=== PATIENT | female | born 1995 | race Caucasian/White ===

== ENCOUNTER 2021-01-17 08:00 | Outpatient (CLI) | payer OTHER ==
[2021-01-17 20:53] LABS: CHLAMYDIA TRACHOMATIS DNA NEGATIVE (NEGATIVE); NEISSERIA GONORRHOEAE DNA NEGATIVE (NEGATIVE); TRICHOMONAS VAGINALIS DNA NEGATIVE (NEGATIVE)
== END 2021-01-17 23:59 | disposition home or self-care (01) ==
LOC: LAB.R 08:00
PROVIDERS: ATTEND Obstetrics & Gynecology
DX: Z11.3 Encounter for screening for infections with a predominantly sexual mode of transmission (principal)
CPT/HCPCS: 87491; 87591; 87661

== ENCOUNTER 2021-01-22 10:47 | Day surgery (SDC) | payer OTHER ==
[2021-01-22] MEDS ORDERED: ceFAZolin 2 GM/50 ML 2 GM/50 ML BAG IV ONE (11:30)
[2021-01-22] MEDS ORDERED: ACETAMINOPHEN 1,000 MG/100 ML 100 ML IV ONE (11:30)
[2021-01-22] MEDS ORDERED: GABAPENTIN 400 MG CAPSULE ONE (11:31)
[2021-01-22] MEDS ORDERED: LACTATED RINGERS 1,000 ML IV ONE ×2 (11:40→15:24)
[2021-01-22 11:58] LABS: B. PARAPERTUSSIS- RESP PCR PAN NOT DETECTED; B. PERTUSSIS- RESP PCR PANEL NOT DETECTED; C. PNEUMONIAE- RESP PCR PANEL NOT DETECTED; CORONAVIRUS 229E-RESP PCR NOT DETECTED; CORONAVIRUS HKU1-RESP PCR NOT DETECTED; CORONAVIRUS NL63-RESP PCR NOT DETECTED; CORONAVIRUS OC43-RESP PCR NOT DETECTED; HUMAN METAPNEUMOVIRUS NOT DETECTED; INFLUENZA A- RESP PCR PANEL NOT DETECTED; INFLUENZA B - RESP PCR PANEL NOT DETECTED; M. PNEUMONIAE- RESP PCR PANEL NOT DETECTED; PARAINFLUENZA VIRUS 1 NOT DETECTED; PARAINFLUENZA VIRUS 2 NOT DETECTED; PARAINFLUENZA VIRUS 3 NOT DETECTED; PARAINFLUENZA VIRUS 4 NOT DETECTED; RHINOVIRUS/ENTEROVIRUS NOT DETECTED; RSV- RESP PCR PANEL NOT DETECTED; SARS-CoV-2 -RESP PCR PANEL NOT DETECTED
[2021-01-22] MEDS ORDERED: MORPHINE 2 MG/ML CARPUJECT IVP PRN (11:58)
[2021-01-22] MEDS ORDERED: ONDANSETRON 4 MG/2 ML VIAL IVP PRN ×2 (11:58→15:36)
[2021-01-22] MEDS ORDERED: METOCLOPRAMIDE 10 MG/2 ML VIAL IVP PRN (11:58)
[2021-01-22] MEDS ORDERED: HYDROmorphone 0.5 MG/0.5 ML SYRINGE IVP PRN (11:58)
[2021-01-22] MEDS ORDERED: ATROPINE ABBOJECT 1 MG/10 ML SYRINGE IVP PRN (11:58)
[2021-01-22] MEDS ORDERED: ePHEDrine 50 MG/ML VIAL IVP PRN (11:58)
[2021-01-22] MEDS ORDERED: NALOXONE 0.4 MG/ML VIAL IVP PRN (11:58)
[2021-01-22] MEDS ORDERED: fentaNYL 100 MCG/2 ML VIAL IVP PRN (11:58)
--- NOTE | 2021-01-22 11:58 | ANESTHESIA ---
Pre-Anesthesia VS, & Labs - Diagnosis missed , 9 wk gestation - Procedure Sharp Suction D&C Vital Signs: Temp Pulse Resp BP Pulse Ox 36.6 C 70 18 94/52 L 98 01/22/21 11:00 01/22/21 11:00 01/22/21 11:00 01/22/21 11:00 01/22/21 11:00 Height: 5 ft 3 in Weight (kg): 92 kg Body Mass Index: 35.9 BMI Classification: Obese - NPO >8 hours - Is Patient ?: No - Lab Results Lab results reviewed: Yes Home Medications and Allergies Home Medications: Ambulatory Orders No Known Home Medications 01/21/21 No Known Home Medications 01/21/21 Allergies/Adverse Reactions: Allergies Allergy/AdvReac Type Severity Reaction Status Date / Time No Known Drug Allergies Allergy Verified 01/21/21 15:10 Anes History & Medical History - Anesthetic History Anesthesia Complications: reports: No previous complications Family history of Anesthesia Complications: Denies Family history of Malignant Hyperthermia: Denies - Medical History Cardiovascular: reports: None Pulmonary: reports: None Gastrointestinal: reports: None Urinary: reports: None Musculoskeletal: reports: None Endocrine/Autoimmune: reports: None Skin: reports: None - Surgical History General: reports: Cholecystectomy Eyes Ears Nose Throat (EENT): reports: Tonsil/Adenoidectomy Exam General: Alert, Oriented x3, Cooperative, No acute distress Dental: WNL Mouth Openin Fingerbreadth Neck Mobility: Normal Mallampati classification: I Respiratory: Lungs clear, Normal breath sounds, No respiratory distress, No accessory muscle use Cardiovascular: Regular rate, Normal S1, Normal S2, No murmurs Plan Anesthesia Type: General Consent for Procedure(s) Verified and Reviewed: Yes Code Status: Attempt Resuscitation ASA classification: 1-Healthy patient Is this case an emergency?: No
[2021-01-22] MEDS ORDERED: LACTATED RINGERS 1,000 ML IV SCH (12:00)
[2021-01-22] MEDS ORDERED: BUPIVACAINE 0.25% PF 30 ML VIAL ONE (14:30)
[2021-01-22] MEDS ORDERED: LIDOCAINE 2%-EPI 1:100000 20 ML MDV ONE (14:30)
[2021-01-22] MEDS ORDERED: MIDAZOLAM 2 MG/2 ML VIAL ONE (14:33)
[2021-01-22] MEDS ORDERED: PROPOFOL 200 MG/20 ML VIAL IVP ONE (14:33)
[2021-01-22] MEDS ORDERED: fentaNYL 100 MCG/2 ML VIAL ONE (14:33)
[2021-01-22] MEDS ORDERED: LIDOCAINE-MPF 2% 5 ML VIAL ONE (14:33)
[2021-01-22] MEDS ORDERED: BUPIVACAINE 0.5% PF 30 ML VIAL INFIL ONE ×2 (14:52)
[2021-01-22] MEDS ORDERED: LIDOCAINE MPF 2%-EPI 1:200000 20 ML VIAL SUBQ ONE ×2 (14:52)
[2021-01-22] MEDS ORDERED: BUPIVACAINE 0.5% PF 30 ML VIAL ONE (14:55)
[2021-01-22] MEDS ORDERED: CARBOPROST TROMETHAMINE 250 MCG/ML AMP IM ONE (15:08)
[2021-01-22] MEDS ORDERED: METHYLERGONOVINE 0.2 MG/ML VIAL ONE (15:08)
[2021-01-22] MEDS ORDERED: miSOPROStoL 200 MCG TABLET ONE (15:08)
[2021-01-22] MEDS ORDERED: DEXAMETHASONE 4 MG/ML VIAL ONE (15:13)
[2021-01-22] MEDS ORDERED: ONDANSETRON 4 MG/2 ML VIAL ONE (15:13)
[2021-01-22] MEDS ORDERED: KETOROLAC 30 MG/ML VIAL ONE (15:22)
--- NOTE | 2021-01-22 15:33 | OPERATIVE REPORT ---
Operative Report - General Procedure Date: 01/22/21 Planned Procedure: SUCTION D&C Pre-Op Diagnosis: 9 WEEK MISSED AB Procedure Performed: SAME Post Op Diagnosis: SAME - Procedure Note Primary Surgeon: Yosef Jackson MD Anesthesia Provider: navjot Kate CRNA Anesthesia Technique: General LMA Pathology: POC IV Fluids (mL): 800 Estimated Blood Loss (mL): 300 Complications: none
[2021-01-22 15:54] VITALS: BP 102/44
--- NOTE | 2021-01-22 16:08 | OPERATIVE REPORT ---
DATE OF SERVICE: 01/22/2021 Physician: Yosef Jackson MD PREOPERATIVE DIAGNOSES: A 9-week missed . POSTOPERATIVE DIAGNOSIS: A 9-week missed . PROCEDURE: Suction D and C. SURGEON: Yosef Jackson MD ANESTHESIA: DARION Vega IV FLUIDS: 800 mL ESTIMATED BLOOD LOSS: 300 mL FINDINGS: Upon placing a speculum, the cervix was visualized and she sounded to 11 cm. Following the procedure, it had fallen to 9 cm. There was a moderate amount of products of conception removed. PROCEDURE IN DETAIL: Following adequate general anesthesia via LMA, patient was placed in dorsal lithotomy position in [facility]. Pelvic examination revealed a uterus, which was enlarged and felt to be midline. At this point, she was prepped and draped in the usual fashion. A timeout was performed, at which concerns were addressed. A speculum was placed in the vagina. The cervix was visualized, grasped with a single-tooth tenaculum. The uterosacral ligaments were both injected with 0.25% Marcaine with 1% lidocaine with epinephrine in both uterosacral ligaments, 5 mL in each side. The cervix was dilated up to size 9 dilator. The uterus was sounded to 11 cm and then a 9 mm suction catheter was introduced into the uterine cavity. Suction was applied and it was rotated and then gradually withdrawn. There was a flash of fluid and then there was some tissue seen. This was repeated 3 more times with tissue being removed on every one, but the last pass. At this point, the procedure was terminated. The cervix released from the single-tooth tenaculum. Patient tolerated the procedure well and was taken to recovery in stable condition. Sponge and needle counts were correct. TD: 01/22/2021 15:38 [facility]
--- NOTE | 2021-01-22 21:37 | ANESTHESIA POST OP EVALUATION ---
Anesthesia Post Eval - Post Anesthesia Eval Vitals: Last Vital Signs Temp 36.2 C L 01/22/21 15:45 Pulse 81 01/22/21 15:52 Resp 17 01/22/21 15:52 BP 102/44 L 01/22/21 15:52 Pulse Ox 100 01/22/21 15:52 CV Function Including HR & BP: positive: Stable Pain Control: positive: Satisfactory Nausea & Vomiting: positive: Negative Mental Status: positive: Baseline Respiratory Status: Airway Patent Hydration Status: Satisfactory Anesthesia Complications: positive: None
== END 2021-01-22 10:48 | disposition home or self-care (01) ==
LOC: SDS 10:47
PROVIDERS: ATTEND Obstetrics & Gynecology
PROC: 10D17ZZ Extraction of Products of Conception, Retained, Via Natural or Artificial Opening (ICD-10-PCS; principal; 2021-01-22 12:30)
DX: O02.1 Missed abortion (principal); E66.9 Obesity, unspecified; Z68.35 Body mass index [BMI] 35.0-35.9, adult
CPT/HCPCS: 0202U; 59820; A9270; J0131; J0690; J2210; J7120

== ENCOUNTER 2021-01-29 15:23 | Outpatient (CLI) | payer OTHER | END 2021-01-29 15:24 | disposition home or self-care (01) | LOC: LAB 15:23 | PROVIDERS: ATTEND Obstetrics & Gynecology | DX: O02.1 Missed abortion (principal) | CPT/HCPCS: 36415; 84702 ==

== ENCOUNTER 2021-02-16 10:27 | Outpatient (CLI) | payer OTHER | END 2021-02-16 10:28 | disposition home or self-care (01) | LOC: LAB 10:27 | PROVIDERS: ATTEND Obstetrics & Gynecology | DX: O02.1 Missed abortion (principal) | CPT/HCPCS: 36415; 84702 ==

== ENCOUNTER 2021-02-24 11:10 | Outpatient (CLI) | payer OTHER | END 2021-02-24 11:11 | disposition home or self-care (01) | LOC: LAB 11:10 | PROVIDERS: ATTEND Obstetrics & Gynecology | DX: O02.1 Missed abortion (principal) | CPT/HCPCS: 36415; 84702 ==